=== PATIENT | female | born 1960 | race Caucasian/White ===

== ENCOUNTER 2024-06-14 12:53 | Outpatient (AMB) | payer BC, SELFPAY ==
--- NOTE | 2024-06-14 13:11 | HO.SPINEOV ---
Intake Visit Reasons: Lumbar radiculopathy Intake Note: Ms. Tate is here today c/o right sided back pain radiating down the right leg. [employer] Required: No Allergies penicillin V Allergy (Unknown, Verified 06/14/24 13:12) hives Assessment & Plan Assessment & Plan (1) Lumbar radiculopathy: Code(s): M54.16 - Radiculopathy, lumbar region Category: Medical Plan Dear KIMBERLY Lord, Thank you for referring Brenda to our office today. She is a pleasant 63 y/o female who comes in today with a chief complaint of low back pain and shooting pain into her left lower extremity. When describing the shooting pain she runs her hand down her left posterior thigh, over the side of the knee, down to the lateral aspect of her left calf. She reports some associated numbness/tingling in her bilateral feet, but feels this may be related to her neuropathy diagnosis. She reports that her symptoms began abruptly in November of 2023. She awoke one morning with low back pain and shooting pains down her left lower extremity. The patient previously was treated with L5-S1 intralaminar steroid injections which intermittently provided 100% relief of her radicular pain. This relief only lasted a few days at a time per the patient's report. She has tried taking gabapentin, tramadol, prednisone taper, lidocaine patches, diclofenac gel, and ibuprofen without significant relief of symptoms she has been to physical therapy. She has tried seeing a chiropractor. Is to the point where she can not stand long enough to cook tortilla, and is unable to complete other basic ADLs. She denies any saddle anesthesia or bowel/bladder incontinence. PMH: Hypertension, high cholesterol, breast lumpectomy status post breast cancer diagnosis. Treated with chemotherapy. Currently in remission Social hx: Patient smokes 1/2 pack cigarettes per day. Denies substance use. Medications: Gabapentin, tramadol, lidocaine patches, diclofenac gel, ibuprofen, paroxetine. Allergies: Penicillin. Physical exam: The patient has 5/5 strength in her upper and lower extremities. No significant sensational deficits. Reflexes are 3+ hyperactive, diffusely. The patient ambulates with a somewhat antalgic gait favoring the right side. She rises with the assistance of a chair. (+) left-sided straight leg raise. (-) right-sided straight leg raise. (-) Self's, (-) clonus. Imaging review: MRI of the lumbar spine completed at [facility] shows varying levels of spondylosis of the lumbar spine. Most notably there is a slight spondylolisthesis and paracentral disc bulge at L4-5 with severe central canal and moderate-severe bilateral foraminal stenosis at this level. In addition to this, there is moderate central canal and moderate-severe bilateral foraminal stenosis at L3-4. Impression: Brenda is a pleasant 63-year-old female that comes in today with a chief complaint of low back pain and shooting pains into her left lower extremity. The distribution of her pain is most consistent with a left-sided L5 dermatomal distribution. Her imaging supports this. I believe she likely got secondary relief from the L5-S1 injections as the anesthetic/steroid component likely spread upward towards the L4-[address] In these patients Dr[address] Cavanaugh would typically offer a L4-5 lumbar decompression with possible herniated disc removal. I would like to discuss this case with him later this week and will call the patient back after. Thank you for allowing us to care for your patient. The total time spent with this visit with this patient was 45 minutes reviewing history, physical exam, MRI imaging review, and implementation of treatment plan or further diagnostic testing Anmol Cavanaugh MD,PhD [facility] Coding Level of Care Code New Pt Level 4 (93987) Diagnoses Lumbar radiculopathy M54.16
== END 2024-06-14 14:25 | disposition home or self-care (01) ==
PROVIDERS: PCP Internal Medicine; Referring Provider Student in an Organized Health Care Education/Training Program; Visit Provider Physician Assistant
DX: M54.16 Radiculopathy, lumbar region (principal)
CPT/HCPCS: 99204

== ENCOUNTER → 2024-06-14 12:53 | Outpatient (BNVA) | payer BC, SELFPAY | PROVIDERS: PCP Internal Medicine; Visit Provider Physician Assistant ==

== ENCOUNTER 2024-06-17 14:56 | Outpatient (REF) | payer BC, SELFPAY | END 2024-06-17 14:57 | disposition home or self-care (01) | LOC: HO.HOSX 14:56 | PROVIDERS: Visit Provider Physician Assistant | DX: Z13.89 Encounter for screening for other disorder (principal) ==

== ENCOUNTER 2024-06-25 16:22 | Outpatient (REF) | payer BC, SELFPAY ==
--- NOTE | ~2024-06-25 | XR_ITS ---
EXAMINATION: XR LUMBOSACRAL SPINE CLINICAL INFORMATION: Lumbar radiculopathy. COMPARISON: None available. TECHNIQUE: AP and lateral (neutral, flexion and extension) views of the lumbar spine and lateral view of the lumbosacral junction. FINDINGS: There is bony demineralization. There is a mild lumbar levoscoliosis. At L2-L3, a 3 mm retrolisthesis is seen. At L3-L4, a 5 mm retrolisthesis is seen. At L4-L5, a 3 mm retrolisthesis is seen. The remaining disc spaces are relatively well maintained. No acute fracture or spondylolisthesis is seen. There is no instability with flexion or extension. There is multi-level lumbar endplate and facet arthropathy. The posterior elements are intact. There are diffuse aortoiliac atherosclerotic calcifications. XR/XR lumbar spine 4V min IMPRESSION: 1. There is mild degenerative disc disease at L2-L3, L3-L4 and L4-L5. 2. No acute fracture or spondylolisthesis is seen. 3. There is no instability with flexion or extension. 4. There is a mild lumbar levoscoliosis. Electronically signed by: Zen Eaton MD 07/15/2024 10:50 PM EDT
== END 2024-06-25 16:23 | disposition home or self-care (01) ==
LOC: HO.XRAY 16:22
PROVIDERS: PCP Internal Medicine; Visit Provider Physician Assistant
DX: M54.16 Radiculopathy, lumbar region (principal)
CPT/HCPCS: 72110

== ENCOUNTER 2024-08-19 09:03 | Day surgery (SDC) | payer BC, SELFPAY ==
[2024-08-03 09:59] VITALS: BMI 28.1
--- NOTE | 2024-08-12 10:22 | HO.ANESPROP2 ---
Documented by User: Cecy Henderson NP 08/12/24 10:27 HPI - Anesthesia Eval Consult details Narrative: 63yo F for Left L5 Foraminotomy, 08/19/24 Follows [facility] cardiology for coronary artery calcifications/CAD. Optimized per 07/2024 office visit. PMF Active Problems Active Problems: All Active Problems Lumbar radiculopathy (Acute) Past Medical History Medical History DDD (degenerative disc disease), lumbar Osteopenia Arthritis GERD (gastroesophageal reflux disease) Depression Abdominal aortic atherosclerosis Coronary artery calcification Anxiety Status post chemotherapy Breast cancer Elevated cholesterol HTN (hypertension) Surgical History Surgical History History of ankle surgery Hx of nasal septoplasty Hx of bilateral cataract extraction H/O colonoscopy Hx of breast lump removal Social History Social History Are you a primary healthcare account manager to a significant other at home: No Do you presently have visiting nurse or other home services: No Patient Tobacco Use Status: Current everyday Tobacco user Tobacco use type: Cigarette Cigarettes Per Day: 10 Years Smoked: 50 Use of substances other than those prescribed or required for medical reasons: No Have you been hit, kicked, punched, or otherwise hurt by someone within the past year? If so, by whom?: No Spiritual Healthcare Practices: none Congregational Healthcare Practices: Jehovah'S Witness Cultural Healthcare Practices: none Are you DNR?: No Advance Directives: No (spouse is primary contact) Advance Directives Information Provided: Yes (brochure mailed) Advance Directives on File: No Recently lost weight without trying: No Eating poorly because of decreased appetite: No Nutrition Risks: No Nutritional Risk FDLMP: n/a Poor oral hygiene: No Meds Allergies Allergy/AdvReac Type Severity Reaction Status Date / Time Penicillins Allergy Intermediate Hives Verified 08/19/24 09:17 Home Medications ?Medication ?Instructions ?Recorded ?Confirmed ?Last Taken ?Type aspirin 81 mg tablet,delayed 81 mg PO QAM 08/02/24 08/03/24 Unknown History release clonazepam 1 mg tablet 1 mg PO BID PRN anxiety 08/02/24 08/19/24 08/19/24 History escitalopram oxalate 20 mg tablet 20 mg PO QAM 08/02/24 08/02/24 Unknown History (Lexapro) fenofibrate nanocrystallized 145 145 mg PO QAM 08/02/24 08/03/24 Unknown History mg tablet gabapentin 300 mg capsule 300 mg PO BID 08/02/24 08/19/24 08/19/24 History losartan 50 mg tablet 50 mg PO QAM 08/02/24 08/03/24 Unknown History metoprolol succinate 100 mg 100 mg PO QAM 08/02/24 08/19/24 08/19/24 History tablet,extended release 24 hr multivitamin 1 tab PO QAM 08/02/24 08/03/24 Unknown History tramadol 50 mg tablet 50 mg PO Q12H PRN pain 08/02/24 08/02/24 Unknown History atorvastatin 20 mg tablet 20 mg PO QAM 08/03/24 08/03/24 Unknown History calcium carbonate 600 mg-vitamin 1 tab PO QAM 08/03/24 08/03/24 Unknown History D3 5 mcg (200 unit) tablet magnesium citrate 125 mg capsule 250 mg PO QAM 08/03/24 08/03/24 Unknown History Exam Height,Weight and Vital Signs: Height 5 ft 1.61 in Weight 68.9 kg Pertinent Lab Results Pertinent Lab Results: WBC: 5.5 k/mm3 (12/30/23) RBC:?3.89 m/mm3?Low (12/30/23) Hgb: 13.4 Gm/dL (12/30/23) Hct: 38.5 % (12/30/23) MCV: 99 femtoliters (12/30/23) MCH:?34.4 pg?High (12/30/23) MCHC: 34.8 g/dL (12/30/23) Platelet Count: 212 k/mm3 (12/30/23) RDW-SD: 43.2 femtoliters (12/30/23) Nucleated RBC (Automated): 0 #/100 WBC'S (12/30/23) Abs. Neut: 3.9 k/mm3 (12/30/23) Abs. Lymph: 0.8 k/mm3 (12/30/23) Abs. [place]: 0.4 k/mm3 (12/30/23) Abs. Eo: 0.3 k/mm3 (12/30/23) Abs. Baso: 0 k/mm3 (12/30/23) Neut %: 72.1 % (12/30/23) [place] %: 7 % (12/30/23) Eos %: 5.1 % (12/30/23) Baso %: 0.7 % (12/30/23) Imm Gran: 0.2 % (12/30/23) Abs. Imm Gran: 0 k/mm3 (12/30/23) Sodium: 138 mmol/L (12/30/23) Potassium: 3.7 mmol/L (12/30/23) Chloride: 101 mmol/L (12/30/23) Bicarbonate Level:?19 mmol/L?Low (12/30/23) Glucose Level: 99 mg/dL (12/30/23) BUN: 13 mg/dL (12/30/23) Creatinine-Blood: 0.7 mg/dL (12/30/23) Calcium: 9.4 mg/dL (12/30/23) Protein, Total: 7.1 Gm/dL (12/30/23) Albumin: 4.5 Gm/dL (12/30/23) Alkaline Phosphatase: 52 units/L (12/30/23) AST (SGOT):?55 units/L?High (12/30/23) ALT (SGPT):?38 units/L?High (12/30/23) Bilirubin, Total: 0.4 mg/dL (12/30/23) Cholesterol:?202 mg/dL?High (12/30/23) Triglycerides:?212 mg/dL?High (12/30/23) HDL Cholesterol: 82 mg/dL (12/30/23) LDL Cholesterol: 78 mg/dL (12/30/23) Non HDL Cholesterol: 120 mg/dL (12/30/23) TSH: 2.39 uIU/mL (12/30/23) Narrative Narrative: EKG 07/2024 Ventricular Rate: 66 BPM Atrial Rate: 66 BPM P-R Interval: 154 ms QRS Duration: 76 ms Q-T Interval: 468 ms QTC Calculation(Bazett): 490 ms P [place]: 57 degrees R [place]: 25 degrees T [place]: 47 degrees Normal sinus rhythm Prolonged QT Abnormal ECG When compared with ECG of 02-FEB-2024 14:24, No significant change was found Confirmed by TERI GRIFFITHS, [facility] ([id number]) on 08/11/2024 1:37:12 PM ECHO 2020 Summary There is mild mitral regurgitation. The right ventricular size and function appears grossly normal. The left ventricular size is normal. Left ventricular wall thickness is normal. The LV systolic function is normal . The left ventricular ejection fraction is 55-60 %. There are no regional wall motion abnormalities. Grade I, mild diastolic dysfunction with impaired LV relaxation. Assessment and Plan Assessment Anesthesia Assessment: Chart Reviewed Documented by User: Yosvany Tate MD 08/19/24 09:39 [facility] Past Medical History Medical History DDD (degenerative disc disease), lumbar Osteopenia Arthritis GERD (gastroesophageal reflux disease) Depression Abdominal aortic atherosclerosis Coronary artery calcification Anxiety Status post chemotherapy Breast cancer Elevated cholesterol HTN (hypertension) Family History Family history of problems with anesthesia: No Surgical History Surgical History History of ankle surgery Hx of nasal septoplasty Hx of bilateral cataract extraction H/O colonoscopy Hx of breast lump removal History of Problems with Anesthesia: No Social History Social History Are you a primary healthcare account manager to a significant other at home: No Do you presently have visiting nurse or other home services: No Patient Tobacco Use Status: Current everyday Tobacco user Tobacco use type: Cigarette Cigarettes Per Day: 10 Years Smoked: 50 Use of substances other than those prescribed or required for medical reasons: No Have you been hit, kicked, punched, or otherwise hurt by someone within the past year? If so, by whom?: No Spiritual Healthcare Practices: none Congregational Healthcare Practices: Jehovah'S Witness Cultural Healthcare Practices: none Are you DNR?: No Advance Directives: No (spouse is primary contact) Advance Directives Information Provided: Yes (brochure mailed) Advance Directives on File: No Recently lost weight without trying: No Eating poorly because of decreased appetite: No Nutrition Risks: No Nutritional Risk FDLMP: n/a Poor oral hygiene: No Meds Allergies Allergy/AdvReac Type Severity Reaction Status Date / Time Penicillins Allergy Intermediate Hives Verified 08/19/24 09:17 Home Medications ?Medication ?Instructions ?Recorded ?Confirmed ?Last Taken ?Type aspirin 81 mg tablet,delayed 81 mg PO QAM 08/02/24 08/03/24 Unknown History release clonazepam 1 mg tablet 1 mg PO BID PRN anxiety 08/02/24 08/19/24 08/19/24 History escitalopram oxalate 20 mg tablet 20 mg PO QAM 08/02/24 08/02/24 Unknown History (Lexapro) fenofibrate nanocrystallized 145 145 mg PO QAM 08/02/24 08/03/24 Unknown History mg tablet gabapentin 300 mg capsule 300 mg PO BID 08/02/24 08/19/24 08/19/24 History losartan 50 mg tablet 50 mg PO QAM 08/02/24 08/03/24 Unknown History metoprolol succinate 100 mg 100 mg PO QAM 08/02/24 08/19/24 08/19/24 History tablet,extended release 24 hr multivitamin 1 tab PO QAM 08/02/24 08/03/24 Unknown History tramadol 50 mg tablet 50 mg PO Q12H PRN pain 08/02/24 08/02/24 Unknown History atorvastatin 20 mg tablet 20 mg PO QAM 08/03/24 08/03/24 Unknown History calcium carbonate 600 mg-vitamin 1 tab PO QAM 08/03/24 08/03/24 Unknown History D3 5 mcg (200 unit) tablet magnesium citrate 125 mg capsule 250 mg PO QAM 08/03/24 08/03/24 Unknown History Exam Airway Mallampati Class: III TM Dist: >3cm Neck ROM: Full Assessment and Plan Assessment Anesthesia Assessment: Anesthesia Plan Discussed Final Anesthetic Review Family History of Problems with Anesthesia: No History of Problems with Anesthesia: No NPO: Yes ASA Class: III Final Preanesthetic Review: No Changes in Pt Med Stat, Meds/Allgs Chart Reviewed, Consent Obtained/Reviewed and Anes Risks/Benef Reviewed Patient Risk: Intermediate Procedure Risk: Intermediate Anesthetic Plan Anesthetic Plan: GA Disposition: Standard PACU
[2024-08-19] MEDS: methocarbamoL 750 MG TABLET PO (09:21)
[2024-08-19 09:32] VITALS: BMI 28.7
--- NOTE | 2024-08-19 09:39 | HO.ANESPROP2 ---
[facility] Active Problems Active Problems: All Active Problems Lumbar radiculopathy (Acute) Past Medical History Medical History DDD (degenerative disc disease), lumbar Osteopenia Arthritis GERD (gastroesophageal reflux disease) Depression Abdominal aortic atherosclerosis Coronary artery calcification Anxiety Status post chemotherapy Breast cancer Elevated cholesterol HTN (hypertension) Family History Family history of problems with anesthesia: No Surgical History Surgical History History of ankle surgery Hx of nasal septoplasty Hx of bilateral cataract extraction H/O colonoscopy Hx of breast lump removal History of Problems with Anesthesia: No Social History Social History Are you a primary pulmonary care nurse to a significant other at home: No Do you presently have visiting nurse or other home services: No Patient Tobacco Use Status: Current everyday Tobacco user Tobacco use type: Cigarette Cigarettes Per Day: 10 Years Smoked: 50 Use of substances other than those prescribed or required for medical reasons: No Have you been hit, kicked, punched, or otherwise hurt by someone within the past year? If so, by whom?: No Spiritual Healthcare Practices: none Sabianism Healthcare Practices: Mosque Cultural Healthcare Practices: none Are you DNR?: No Advance Directives: No (spouse is primary contact) Advance Directives Information Provided: Yes (brochure mailed) Advance Directives on File: No Recently lost weight without trying: No Eating poorly because of decreased appetite: No Nutrition Risks: No Nutritional Risk FDLMP: n/a Poor oral hygiene: No Meds Allergies Allergy/AdvReac Type Severity Reaction Status Date / Time Penicillins Allergy Intermediate Hives Verified 08/19/24 09:17 Active Medications: Current Medications Lactated Ringer's (Lr) 1,000 mls @ 100 mls/hr IVCONT .Q10H MELINDA Vancomycin HCl 1,000 mg/ (Sodium Chloride) 270 mls @ 270 mls/hr IV PREOP ONE Stop: 08/19/24 10:05 Home Medications ?Medication ?Instructions ?Recorded ?Confirmed ?Last Taken ?Type aspirin 81 mg tablet,delayed 81 mg PO QAM 08/02/24 08/03/24 Unknown History release clonazepam 1 mg tablet 1 mg PO BID PRN anxiety 08/02/24 08/19/24 08/19/24 History escitalopram oxalate 20 mg tablet 20 mg PO QAM 08/02/24 08/02/24 Unknown History (Lexapro) fenofibrate nanocrystallized 145 145 mg PO QAM 08/02/24 08/03/24 Unknown History mg tablet gabapentin 300 mg capsule 300 mg PO BID 08/02/24 08/19/24 08/19/24 History losartan 50 mg tablet 50 mg PO QAM 08/02/24 08/03/24 Unknown History metoprolol succinate 100 mg 100 mg PO QAM 08/02/24 08/19/24 08/19/24 History tablet,extended release 24 hr multivitamin 1 tab PO QAM 08/02/24 08/03/24 Unknown History tramadol 50 mg tablet 50 mg PO Q12H PRN pain 08/02/24 08/02/24 Unknown History atorvastatin 20 mg tablet 20 mg PO QAM 08/03/24 08/03/24 Unknown History calcium carbonate 600 mg-vitamin 1 tab PO QAM 08/03/24 08/03/24 Unknown History D3 5 mcg (200 unit) tablet magnesium citrate 125 mg capsule 250 mg PO QAM 08/03/24 08/03/24 Unknown History Exam Height,Weight and Vital Signs: Height 5 ft 1.61 in Weight 70.307 kg Assessment and Plan Final Anesthetic Review Family History of Problems with Anesthesia: No History of Problems with Anesthesia: No
[2024-08-19] MEDS: vancomycin HCL 1,000 MG in 0.9 % Sodium Chloride 250 ML 270 MG IV (10:08)
[2024-08-19] MEDS: Lactated Ringers 1,000 ML 100 ML IVCONT (10:09)
--- NOTE | 2024-08-19 10:13 | MHC.SHP ---
Pre-Procedural Eval Section A - 24 Hr Update-Section A only Date of Service: 08/19/24 The patient is an INPATIENT: No Section B - Complete if H&P > 30 days Chief Complaint: Radiculopathy, lumbar region Details of Present Illness: left leg pain Allergies: Allergies Allergy/AdvReac Type Severity Reaction Status Date / Time Penicillins Allergy Intermediate Hives Verified 08/19/24 09:17 Review of Systems Sugical H&P ROS: Negative: Constitution, Cardiovascular, Respiratory, Neurological, Psychiatric, Hem-Onc, Allergic/Immunologic, Gastrointestinal, Genitourinary, Musculoskeletal, Integumentary, Endocrine and Eyes/Ears/Nose/Throat Exam Surgical H&P Exam: Normal: HEENT, Normal: Heart, Normal: Lungs, Normal: Extremities, Normal: Abdomen, Normal: Skin and Normal: Neurological (awake, alert) Plan Diagnosis/Plan: Unchanged I have reviewed the history and physical and performed a pertinent physical examination on my patient. No changes have occurred unless specified. Left L4-5 decompression/laminotomy Time Spent With Patient Time: Total time managing care of this patient today _5___ minutes.
--- NOTE | 2024-08-19 10:19 | P.DS_ITS ---
DS: Providers Provider Date of Service: 08/19/24 Date of discharge: 08/19/24 Primary care physician: Fern Koch MD Admitting clinician: Tree Cavanaugh DS: Diagnosis Discharge Diagnosis (1) Lumbar radiculopathy: Status: Acute DS: Summary Time Attestation Discharge Coordination Time (in mins): 6 Quality: Safe Use of Opioids Does Pt have an Active Cancer Diagnosis on the Problem List?: No Quality: Stroke Does the patient have a stroke diagnosis?: No Physical Exam Vital Signs: Vital Signs: BMI result Body Mass Index 28.7 Discharge Plan Discharge Patient Disposition: Home, Self-Care Referrals: Nahomy Koch MD [Primary Care Provider] - 1 Week Discharge Medications: New oxycodone 5 mg tablet 5 mg PO Q4H PRN (Reason: pain) Qty: 20 0RF Rx Instructions: Partial Fill upon patient request. docusate sodium [Colace] 100 mg capsule 100 mg PO BID Qty: 20 0RF Continued multivitamin Tablet 1 tab PO QAM losartan 50 mg tablet 50 mg PO QAM metoprolol succinate 100 mg tablet extended release 24 hr 100 mg PO QAM clonazepam 1 mg tablet 1 mg PO BID PRN (Reason: anxiety) tramadol 50 mg tablet 50 mg PO Q12H PRN (Reason: pain) gabapentin 300 mg capsule 300 mg PO BID escitalopram oxalate [Lexapro] 20 mg tablet 20 mg PO QAM fenofibrate nanocrystallized 145 mg tablet 145 mg PO QAM atorvastatin 20 mg tablet 20 mg PO QAM calcium carbonate-vitamin D3 600 mg-5 mcg (200 unit) Tablet 1 tab PO QAM magnesium citrate 125 mg Capsule 250 mg PO QAM Held aspirin 81 mg Tablet,Delayed Release (Dr/Ec) 81 mg PO QAM Hold Instructions: Resume on 08/26/24. you may resume asa 7 days after surgery Discharge Orders: Discharge Order (Routine); Ordered 08/19/24 Ordered By: Diego Vincent Diet: Advance to usual diet Activity on Discharge: As tolerated Activity Restrictions/Additional Instructions: After your spinal surgery we ask you to observe the following restrictions/guidelines: Activity: It is normal to feel some discomfort as you increase your activity, but that will improve with time. We ask you avoid heavy lifting or acitivities that cause pain. As a general r ule, 8lbs is a safe limit for lifting right after surgery. Walk as much as you feel comfortable but not to exhaustion. You will feel extra tired the first few days after surgery. Stay well hydrated. It is OK to walk up and down stairs You may return to driving when you are off narcotics (such as vicodin, oxycodone, dilaudid, etc), and you are back to normal functional capacity. If you have any concerns please check with office before driving. Return to work is specific to each patient and each surgery, so please speak with your doctor/PA at first follow up. Please bring paperwork such as FMLA at that time if you need it filled out. Medications: You may resume aspirin 7 days after surgery For optimum pain control, it is best to start with a combination of 500 mg of Tylenol every 4 hours with 600 mg of Motrin every 8 hours, and use narcotics as needed in between for breakthrough pain. We will give you a short supply of narcotics after surgery (usually one weeks worth). If you need more please call the office but do not use more than prescribed. You will need to give our office 48 hours notice if you need narcotics refilled and we do not fill narcotics on weekends or evenings. If you are on a narcotic, it is a good idea to take a stool softener such as colace or senna to avoid constipation If you take blood thinner such as aspirin, Plavix, Coumadin, Effient, Eliquis etc for conditions such as Afib, DVT, Pulmonary embolus, coronary disease, stents etc please speak with your surgeon about specific details as to when you can resume these medications. You can resume NSAIDs on post op day 1 (eg: Motrin, Naproxen, etc). Follow up: Please call the office, , after surgery to arrange a 3 week follow up for wound check. Wound Care: You may remove your dressing on the first day after surgery. ?You may ?leave open to air. Please do not remove the steri strips underneath. they will fall off on their own in one week. IT IS NORMAL FOR THE WOUND TO OOZE OR BE BLOODY FOR A FEW DAYS AFTER SURGERY. ?IF THIS HAPPENS JUST PLACE NEW DRESSING OVER IT TO AVOID STAINING CLOTHES. You may shower on post op day # 1 We ask that you do not let the water soak the wound. If it does get wet, just towel dry lightly. Please do not scrub your incision or place any type of chemical/ointment on the wound. No tub baths, pools or jacuzzis for one month. If you have any leaking or redness from your wound, or fevers, please call office Print Language: Slovenian
--- NOTE | 2024-08-19 11:14 | W.PM.OPN ---
Operative Note Operative Note Date of Service: 08/19/24 Narrative: Preoperative Diagnosis: L4-5 spinal stenosis/lateral recess stenosis/neural foraminal stenosis Operation: Left L4-5 Laminotomy, Partial facetectomy and foraminotomy with use of microscope Consent Informed Consent was obtained for this operation. I have explained the nature, purpose and benefits of the operation. I have discussed the risks and benefit of the operation including possible complications or adverse events with patient/family. Alternative(s) were discussed with the patient with their relative benefits and risks as well as the consequences of not accepting the operation were included in obtaining consent. Surgeon: GIRISH BALDERAS MD, PHD Procedure Assisted By: Diego Corona Description of Procedure This patient is suffering from a left lumbar radiculopathy due to left L4-5 lateral recess stenosis compressing the L5 nerve root. The patient was offered a decompression. The procedure complications were explained. The patient was consented. The patient was brought to the operating room and endotracheally intubated. The patient was turned in prone position on the Tahir frame. Prep and drape was done followed by timeout. The Physician observation assistant provided access. A mid lumbar incision was made followed by release of the paravertebral muscle on the left to expose the L4-5 lamina and facet joints. An intraoperative x-ray was obtained to confirm the correct level. The microscope was brought in. I took over the procedure. The high-speed drill was used to do a L4-5 laminotomy until flavum ligament was reached. A #2 Kerrison was used to expand the laminotomy near flush to the pedicles and to include a partial facetectomy. The flavum ligament was opened and resected with a #3 Kerrison to decompress the underlying thecal sac. The flavum ligament was removed to decompress the lateral recess and the exiting L5 nerve root. A long nerve hook could be easily passed along the medial side of the pedicle as a sign of adequate decompression. The microscope was removed. Hemostasis was done. The physician observation assistant close the Incision in 2 layers. Steri-Strips were used to approximate incision. An OpSite with Tegaderm was used to cover the incision. All sponge needle counts were correct. Patient was extubated and transported in stable is to recovery room. Anesthesia: General Estimated Blood Loss (ml): 15 mL Complications: None Duration of Surgery: Under 60 Minutes Postoperative Plan: Discharge to home
[2024-08-19 11:30] VITALS: BP 125/89; PULSE 83; RESP 16; TEMP 36.2; O2SAT 98
[2024-08-19 11:35] VITALS: BP 119/55; PULSE 79; RESP 16; TEMP 36.2; O2SAT 96
[2024-08-19 11:40] VITALS: BP 118/61; PULSE 81; RESP 16; O2SAT 96
[2024-08-19 11:45] VITALS: BP 118/61; PULSE 84; RESP 14; O2SAT 96
[2024-08-19 12:00] VITALS: BP 133/41; PULSE 81; RESP 16; O2SAT 96
== END 2024-08-19 12:34 | disposition home or self-care (01) ==
PROVIDERS: PCP Internal Medicine; Visit Provider Neurological Surgery
PROC: (CPT 63047; principal; 2024-08-19 12:00)
DX: M54.16 Radiculopathy, lumbar region (principal); M48.061 Spinal stenosis, lumbar region without neurogenic claudication; I10 Essential (primary) hypertension; E78.00 Pure hypercholesterolemia, unspecified; Z85.3 Personal history of malignant neoplasm of breast; F17.210 Nicotine dependence, cigarettes, uncomplicated; Z79.1 Long term (current) use of non-steroidal anti-inflammatories (NSAID); Z79.899 Other long term (current) drug therapy; Z88.0 Allergy status to penicillin
CPT/HCPCS: 63047; J0131; J0690; J1100; J1885; J2003; J2405; J2704; J3010; J3370

== ENCOUNTER → 2024-08-19 09:03 | Outpatient (BNV) | payer BC, SELFPAY | PROVIDERS: PCP Internal Medicine; Visit Provider Neurological Surgery | DX: M54.16 Radiculopathy, lumbar region (principal) | CPT/HCPCS: 63047; 99499 ==

== ENCOUNTER 2024-09-09 13:45 | Outpatient (AMB) | payer BC, SELFPAY ==
--- NOTE | 2024-09-09 13:54 | A.SPINEOV_ITS ---
Intake Visit Reasons: 1st post op Intake Note: Ms. Tate is here today for her 1st post op. Training Personnel Supervisor Required: No Allergies Penicillins Allergy (Intermediate, Verified 09/09/24 13:54) Hives Assessment & Plan Assessment & Plan (1) Lumbar radiculopathy: Code(s): M54.16 - Radiculopathy, lumbar region Category: Medical Plan Mrs Tate is following with us 3 weeks out from her lumbar decompression of the L5 nerve root. She is doing significantly better in terms of the leg pain. If she is standing for any length of time though she still feel some discomfort. Her wound healed up beautifully. We discussed activity guidelines, restrictions and expectations after lumbar decompression. She will return in 6 weeks for final postoperative visit. Diego Cavanaugh MD, PhD [facility] Coding Level of Care Code Global (31305) Diagnoses Lumbar radiculopathy M54.16
== END 2024-09-09 14:24 | disposition home or self-care (01) ==
PROVIDERS: PCP Internal Medicine; Visit Provider Physician Assistant
DX: M54.16 Radiculopathy, lumbar region (principal)
CPT/HCPCS: 99024